=== PATIENT | female | born 1960 | race Caucasian/White ===

== ENCOUNTER 2020-02-03 09:12 | Outpatient (CLI) | payer OTHER, SELFPAY ==
--- NOTE | 2020-02-03 09:20 | MM_ITS ---
WS: [id number] BILATERAL DIGITAL SCREENING MAMMOGRAPHY WITH CAD CLINICAL INFORMATION: SCREENING HISTORY: Screening mammogram. No current complaints. COMPARISON: TECHNIQUE: Bilateral CC and MLO views. FINDINGS: The breasts are composed of heterogeneous fibroglandular density tissue, which can limit the detectio n of small underlying mass lesions. No suspicious mass, asymmetry, calcifications, or architectural d istortion. No evidence of malignancy. MM/[place] [id number] IMPRESSION: BI-RADS: 2-Benign FOLLOW UP: 1 Year Follow-up Recommend return to annual screening mammography.
== END 2020-02-03 09:13 | disposition home or self-care (01) ==
LOC: RADSHAW 09:18
PROVIDERS: Family Provider Family Medicine; PCP Family Medicine; Visit Provider Family Medicine
DX: Z12.31 Encounter for screening mammogram for malignant neoplasm of breast (principal)
CPT/HCPCS: 77067

== ENCOUNTER 2020-12-07 16:10 | Emergency (ER) | payer OTHER, SELFPAY ==
[2020-12-07 16:34] VITALS: BP 165/84; PULSE 89; RESP 18; TEMP 36.8; O2SAT 97; BMI 37.1
--- NOTE | 2020-12-07 17:38 | USR_ITS ---
PROCEDURE INFORMATION: Exam: US Duplex Right Lower Extremity Veins, Limited Exam date and time: 12/07/2020 5:38 PM Age: 60 years old Clinical indication: Pain; Leg, lower; Right; Prior surgery; Surgery date: <1 month; Surgery type: RT knee; Additional info: Post op RT knee surgery, pain TECHNIQUE: Imaging protocol: Real-time Duplex ultrasound of the Right Lower Extremity with 2-D swartz scale, color Doppler flow and spectral waveform analysis with image documentation. Limited exam was focused on the right lower extremity veins. COMPARISON: MRI Knee w/wo RIGHT [id number] 02/18/2017 12:42 PM FINDINGS: Right deep veins: Unremarkable. The common femoral, femoral, proximal profunda femoral and popliteal veins are patent without thrombus. Normal Doppler waveforms. Normal compressibility and/or augmentation response. Right superficial veins: Unremarkable. Saphenofemoral junction is patent without thrombus. Soft tissues: Unremarkable. US/[place] [id number] IMPRESSION: Negative for deep venous thrombosis. Radiation Dose CTDIVOL = (mGy): DLP = (mGy-cm)
--- NOTE | 2020-12-07 18:12 | W.ED.GENADLT ---
HPI - General Adult General: Chief complaint: Extremity Injury, Lower Stated complaint: PAIN IN R CALF:R KNEE REPLACED 11.23.20 Time Seen by Provider: 12/07/20 16:47 History of Present Illness: HPI narrative: Patient is a 60-year-old female with a history of left knee replacement who presents the emergency room for evaluation of right calf pain and swelling for the last 2 weeks after her right knee replacement. Patient was told to come to the emergency room for evaluation of DVT by her doctor. Patient denies any shortness breath, chest pain, palpitation, lightheadedness at this time. Reports that her wound is healing well. Patient has appointment tomorrow with her orthopedic provider. Onset: 2 weeks ago Duration:2 weeks Location:R calf Severity:moderate Review of Systems Narrative: Constitutional: No fever, no chills. HEENT: No vision changes CV: No chest pain, no palpitations PULM: no cough, no dyspnea. GI: No abdominal pain, no N/V/D. : No dysuria MSKEL: +R calf swelling and pain SKIN: No new rashes, no lesions. NEURO: No headache, no focal weakness. HEME: No visible bruises PSYCH: Normal mood Physical Exam Narrative: EXAM NARRATIVE: Head: Atraumatic Eyes: PERRL, conjunctiva without injection ENT: Mucous membrane moist NECK: Supple, ROM intact LUNGS: LCTAB, no crackles/rhonchi CV: RRR ABDOMEN: Soft, nontender in all quadrants EXTREMITY: Normal ROM, no bilateral extremity swelling or edema, negative Homans' sign, 2+ DP/PT pulses RLE, cap refill < 2 seconds R side, sensations intact in the RLE SKIN: No rash or erythema NEURO: Awake and alert, no focal motor deficits PSYCH: Normal mood and affect Course Vital Signs: Vital signs: Vital Signs Temperature 98.2 F 12/07/20 19:22 Pulse Rate 87 12/07/20 19:22 Respiratory Rate 18 12/07/20 19:22 Blood Pressure 137/69 12/07/20 19:22 Pulse Oximetry 97 12/07/20 19:22 MDM - General Adult MDM Narrative: Medical decision making narrative: 60-year-old female presented to emergency room with concerns for right lower extremity swelling and pain. On exam, patient has no Homans' sign. Neurovascular exam in the affected extremity intact. Ultrasound showed no DVT Disposition: Discharge. Patient counseled regarding diagnostic impression, treatment plan. Patient given ED strict return precautions to return for continuation, worsening, or development of new symptoms. Instructed to f/u w/ her Orthopedic provider regarding symptoms today. Patient verbalized understanding. Imaging Data^: Other Imaging: Radiologist's impression: [place] [id number] [facility].[place], [place] [id number] ReportSigned Patient: Eugenia Andujar #: [id number]: 2Acct#:[id number]/Sex: 60 / FADM Date: 12/07/20Loc: ERRoom/Bed:Attending Dr: Ordering Provider/Ordering MD: Hilaria Saeed MD Date of Service: 12/07/20 Procedure(s): [place] [address] Accession Number(s): [id number] Report Number: [id number] PROCEDURE INFORMATION: Exam: US Duplex Right Lower Extremity Veins, Limited Exam date and time: 12/07/2020 5:38 PM Age: 60 years old Clinical indication: Pain; Leg, lower; Right; Prior surgery; Surgery date: <1 month; Surgery type: RT knee; Additional info: Post op RT knee surgery, pain TECHNIQUE: Imaging protocol: Real-time Duplex ultrasound of the Right Lower Extremity with 2-D swartz scale, color Doppler flow and spectral waveform analysis with image documentation. Limited exam was focused on the right lower extremity veins. COMPARISON: MRI Knee w/wo RIGHT [id number] 02/18/2017 12:42 PM FINDINGS: Right deep veins: Unremarkable. The common femoral, femoral, proximal profunda femoral and popliteal veins are patent without thrombus. Normal Doppler waveforms. Normal compressibility and/or augmentation response. Right superficial veins: Unremarkable. Saphenofemoral junction is patent without thrombus. Soft tissues: Unremarkable. US/[place] [id number] IMPRESSION: Negative for deep venous thrombosis. Radiation Dose CTDIVOL = (mGy): DLP = (mGy-cm) Dictated By:Jus Hendricks MDSigned By:Jus Hendricks MDSigned Date/Time:12/07/201934DD/ 173 Discharge Plan Discharge Patient Disposition: Home Clinical Impression: Leg swelling Condition: Stable Discharge Orders: Discharge ED (Routine); Ordered 12/07/20 Ordered By: Hilaria Saeed Referrals: Bhupendra Charles MD [Primary Care Provider] - Discharge Diet: Advance as tolerated Discharge Activity: Resume usual activity Patient Instructions: Leg Edema (ED) Activity Restrictions/Additional Instructions: Please follow-up with your doctor tomorrow and come back to the emergency room if your symptom worsens, if any fever or chills, chest pain or any new or concerning complaints. Coding Level of Care Code ED Electric Sign Wirer for Farheen Berman
[2020-12-07 19:22] VITALS: BP 137/69; PULSE 87; RESP 18; TEMP 36.8; O2SAT 97
== END 2020-12-07 19:21 | disposition home or self-care (01) ==
PROVIDERS: Emergency Provider Emergency Medicine; PCP Family Medicine
DX: R60.0 Localized edema (principal); Z96.651 Presence of right artificial knee joint
CPT/HCPCS: 93971; 99282

== ENCOUNTER → 2021-09-29 08:51 | Outpatient (BNVA) | payer OTHER, SELFPAY | PROVIDERS: PCP Family Medicine; Visit Provider Family Medicine | DX: Z00.00 Encounter for general adult medical examination without abnormal findings (principal) | CPT/HCPCS: 80053; 80061; 82306; 83036; 84439; 84443; 84481 ==

== ENCOUNTER 2022-04-23 12:43 | Outpatient (CLI) | payer OTHER, SELFPAY ==
--- NOTE | 2022-04-23 12:56 | XR_ITS ---
WS: [id number] XR KUB [id number] REASON FOR EXAM: r/o kidney stone FINDINGS: No intrarenal calculi are identified. There were no intrarenal calculi present on the CT scan of 09/27. No calculi along the abdominal course of the ureters is identified. There are multiple pelvic calcifications. These appear to be vascular calcifications with the possibl e exception of a calcification in the right lower pelvis and calcification in the left lower pelvis. Distal ureteral calculi cannot be readily excluded. XR/XR KUB [id number] IMPRESSION: Pelvic calcifications as above.
== END 2022-04-23 12:44 | disposition home or self-care (01) ==
PROVIDERS: PCP Family Medicine; Visit Provider Family Medicine
DX: R10.32 Left lower quadrant pain (principal); R31.9 Hematuria, unspecified
CPT/HCPCS: 74018; 81000

== ENCOUNTER 2022-05-03 07:58 | Outpatient (CLI) | payer OTHER, SELFPAY ==
--- NOTE | 2022-05-03 09:07 | MM_ITS ---
WS: [id number] BILATERAL SCREENING DIGITAL TOMOSYNTHESIS MAMMOGRAM WITH CAD HISTORY: screening COMPARISON: 02/03/2020, 10/18/2016 Bilateral CC and MLO views with tomosynthesis and synthetic mammography submitted. Computer aided det ection analyzed. Breast composition: The breasts are heterogeneously dense, which may obscure small masses. No suspici ous masses, microcalcifications or architectural distortion. Benign calcifications. MM/[place] [id number] IMPRESSION: BI-RADS: 2-Benign FOLLOW UP: 1 Year Follow-up
== END 2022-05-03 07:59 | disposition home or self-care (01) ==
LOC: RAD 07:59
PROVIDERS: PCP Family Medicine; Visit Provider Family Medicine
DX: Z12.31 Encounter for screening mammogram for malignant neoplasm of breast (principal)
CPT/HCPCS: 77063; 77067

== ENCOUNTER → 2022-12-17 13:40 | Outpatient (BNVA) | payer OTHER, SELFPAY | PROVIDERS: PCP Family Medicine; Visit Provider Family Medicine | DX: Z00.00 Encounter for general adult medical examination without abnormal findings (principal) | CPT/HCPCS: 80053; 80061; 83036; 84439; 84443; 84481 ==

== ENCOUNTER 2023-06-17 13:30 | Outpatient (CLI) | payer OTHER, SELFPAY ==
--- NOTE | 2023-06-17 13:35 | MM_ITS ---
WS: [id number] BILATERAL 3D TOMOSYNTHESIS DIGITAL SCREENING MAMMOGRAPHY WITH CAD CLINICAL INFORMATION: SCREENING HISTORY: Screening mammogram. No current complaints. COMPARISON: 2022 TECHNIQUE: Bilateral CC and MLO views. FINDINGS: The breasts are composed of heterogeneous fibroglandular density tissue, which can limit the detectio n of small underlying mass lesions. Increasing slightly spiculated focal asymmetric density upper out er quadrant LEFT breast measuring 12 mm. Recommend further evaluation with LEFT breast diagnostic ezequiel mography and ultrasound. RIGHT breast is unchanged. MM/[place] [id number] IMPRESSION: BI-RADS: 0-Incomplete: Need additional imaging evaluation FOLLOW UP: Need Additional Imaging Recommend LEFT breast diagnostic mammography and ultrasound in further evaluati on.
== END 2023-06-17 13:31 | disposition home or self-care (01) ==
LOC: RAD 13:30
PROVIDERS: PCP Family Medicine; Visit Provider Family Medicine
DX: Z12.31 Encounter for screening mammogram for malignant neoplasm of breast (principal); R92.333 Mammographic heterogeneous density, bilateral breasts
CPT/HCPCS: 77063; 77067

== ENCOUNTER 2023-07-15 13:04 | Outpatient (CLI) | payer OTHER, SELFPAY ==
--- NOTE | 2023-07-15 13:00 | MM_ITS ---
WS: [id number] LEFT 3D TOMOSYNTHESIS DIGITAL MAMMOGRAPHY WITH CAD CLINICAL INFORMATION: Abnormal mammogram HISTORY: Additional views COMPARISON: 06/17/2023 TECHNIQUE: 3 views of the left breast were obtained. FINDINGS: The left breast is composed of heterogeneous fibroglandular density tissue, which can limit the detec tion of small underlying mass lesions. Again seen is the spiculated focal asymmetric density upper outer quadrant LEFT breast measuring appr oximately 14 mm today. This is persistent on the spot compression views and ultrasound is pending. ULTRASOUND BREAST LEFT TECHNIQUE: Ultrasound left breast focused area of concern. CLINICAL INFORMATION: Abnormal mammogram FINDINGS: Ultrasound LEFT breast at the 1 o'clock position 2 cm from the nipple there is a 7 x 8 x 5 mm hypoech oic lesion with irregular margins. This is taller than wide on some images. Complex internal contents with echogenicity. This lesion is indeterminate and recommend further evaluation with ultrasound-smita ded biopsy. LEFT axilla was interrogated and is normal. MM/[place] [id number] IMPRESSION: BI-RADS: 4-Suspicious Finding-Biopsy Should Be Considered FOLLOW UP: US Guided Biopsy Recommended Recommend ultrasound-guided biopsy of the LEFT breast lesion 1 o'clock position
--- NOTE | 2023-07-15 13:13 | US_ITS ---
WS: [id number] LEFT 3D TOMOSYNTHESIS DIGITAL MAMMOGRAPHY WITH CAD CLINICAL INFORMATION: Abnormal mammogram HISTORY: Additional views COMPARISON: 06/17/2023 TECHNIQUE: 3 views of the left breast were obtained. FINDINGS: The left breast is composed of heterogeneous fibroglandular density tissue, which can limit the detec tion of small underlying mass lesions. Again seen is the spiculated focal asymmetric density upper outer quadrant LEFT breast measuring appr oximately 14 mm today. This is persistent on the spot compression views and ultrasound is pending. ULTRASOUND BREAST LEFT TECHNIQUE: Ultrasound left breast focused area of concern. CLINICAL INFORMATION: Abnormal mammogram FINDINGS: Ultrasound LEFT breast at the 1 o'clock position 2 cm from the nipple there is a 7 x 8 x 5 mm hypoech oic lesion with irregular margins. This is taller than wide on some images. Complex internal contents with echogenicity. This lesion is indeterminate and recommend further evaluation with ultrasound-smita ded biopsy. LEFT axilla was interrogated and is normal. US/US breast LT limited* [id number] IMPRESSION: BI-RADS: 4-Suspicious Finding-Biopsy Should Be Considered FOLLOW UP: US Guided Biopsy Recommended Recommend ultrasound-guided biopsy of the LEFT breast lesion 1 o'clock position
== END 2023-07-15 13:05 | disposition home or self-care (01) ==
LOC: RAD 13:04
PROVIDERS: PCP Family Medicine; Visit Provider Family Medicine
DX: R92.8 Other abnormal and inconclusive findings on diagnostic imaging of breast (principal); R92.322 Mammographic fibroglandular density, left breast; R92.332 Mammographic heterogeneous density, left breast; N64.89 Other specified disorders of breast
CPT/HCPCS: 76642; 77061; G0279

== ENCOUNTER 2023-08-14 13:26 | Outpatient (CLI) | payer OTHER, SELFPAY | END 2023-08-14 13:27 | disposition home or self-care (01) | LOC: RAD 13:26 | PROVIDERS: PCP Family Medicine; Visit Provider Family Medicine | DX: R92.8 Other abnormal and inconclusive findings on diagnostic imaging of breast (principal) | CPT/HCPCS: 19083; 88305 ==

== ENCOUNTER → 2023-12-05 08:16 | Outpatient (BNVA) | payer OTHER, SELFPAY | PROVIDERS: PCP Family Medicine; Visit Provider Family Medicine | DX: E78.5 Hyperlipidemia, unspecified (principal); E03.9 Hypothyroidism, unspecified; F32.A Depression, unspecified; G47.00 Insomnia, unspecified; E11.9 Type 2 diabetes mellitus without complications | CPT/HCPCS: 80053; 80061; 84443 ==

== ENCOUNTER → 2024-07-07 10:37 | Outpatient (BNVA) | payer OTHER, SELFPAY | PROVIDERS: PCP Family Medicine; Visit Provider Family Medicine | DX: E78.5 Hyperlipidemia, unspecified (principal) | CPT/HCPCS: 80053; 80061 ==

== ENCOUNTER 2024-08-13 08:29 | Outpatient (CLI) | payer OTHER, SELFPAY ==
--- NOTE | 2024-08-13 08:35 | MM_ITS ---
WS: [id number] BILATERAL SCREENING DIGITAL TOMOSYNTHESIS MAMMOGRAM WITH CAD HISTORY: SCREENING COMPARISON: 07/15/2023, 06/17/2023, 05/03/2022 and 08/05/2015 Bilateral CC and MLO views with tomosynthesis and synthetic mammography submitted. Computer aided detection analyzed. Breast composition: The breasts are heterogeneously dense, which may obscure small masses. No suspicious masses, microcalcifications or architectural distortion. Very dense fibroglandular tissue in the upper outer quadrant of each breast. Long-term stability of a well-circumscribed nodule measuring 8 x 9 x 7 mm RIGHT breast at 9:00. This nodule is noted on the exam from 2016. Prior breast biopsy clip upper outer quadrant LEFT breast. There are a few benign calcifications within each breast. MM/MM scr tomosynthesis [id number] IMPRESSION: BI-RADS: 2 - Benign FOLLOW UP: 1 Year Follow-up
== END 2024-08-13 08:30 | disposition home or self-care (01) ==
PROVIDERS: PCP Family Medicine; Visit Provider Family Medicine
DX: Z12.31 Encounter for screening mammogram for malignant neoplasm of breast (principal); R92.333 Mammographic heterogeneous density, bilateral breasts; R92.1 Mammographic calcification found on diagnostic imaging of breast; N64.89 Other specified disorders of breast; R92.323 Mammographic fibroglandular density, bilateral breasts
CPT/HCPCS: 77063; 77067

== ENCOUNTER → 2025-01-22 08:01 | Outpatient (BNVA) | payer OTHER, SELFPAY | PROVIDERS: PCP Family Medicine; Visit Provider Family Medicine | DX: F32.A Depression, unspecified (principal); E78.5 Hyperlipidemia, unspecified; E03.9 Hypothyroidism, unspecified | CPT/HCPCS: 80053; 80061; 84443 ==